=== PATIENT | female | born 1955 | race Caucasian/White ===

== ENCOUNTER 2021-10-25 07:30 | Day surgery (SDC) | payer MEDICARE ==
[~2021-10-25] VITALS: Ht 157.5 cm; Wt 59.0 kg
[~2021-10-25 07:30] MED LIST: ALENDRONATE SOD70 MG PO; BACLOFEN10 MG PO; BENAZEPRIL40 M1 PO; CELECOXIB200 MG PO; FENOFIBRATE134 M1 PO; LIPITOR40 M1 PO; NORVASC5 M1 PO; OMEPRAZOLE20 MG PO; TRAZODONE50 MG PO; TYLENOL325 M2 PO
[2021-10-25 09:59] VITALS: BP 146/67
== END 2021-10-25 10:15 | disposition home or self-care (01) ==
LOC: ENDO 07:30 → ORM 09:30 → ENDO 10:15
PROVIDERS: ATTEND Surgery
PROC: 0DJD8ZZ Inspection of Lower Intestinal Tract, Via Natural or Artificial Opening Endoscopic (ICD-10-PCS; principal; 2021-10-25)
DX: Z12.11 Encounter for screening for malignant neoplasm of colon (principal); D17.5 Benign lipomatous neoplasm of intra-abdominal organs; K57.30 Diverticulosis of large intestine without perforation or abscess without bleeding; K64.8 Other hemorrhoids; Q43.9 Congenital malformation of intestine, unspecified; I10 Essential (primary) hypertension; Z86.010 Personal history of colon polyps

== ENCOUNTER 2024-04-26 13:39 | Emergency (ER) | payer MEDICARE ==
[2024-04-26] VITALS (9 sets, daily range): BP systolic 92–185; BP diastolic 65–81
[~2024-04-26] VITALS: Ht 157.5 cm; Wt 63.0 kg
[2024-04-26 13:57] LABS: BASO% 0.3 % (0-3); EOS% 1.3 % (0-8); HEMATOCRIT 28.5 % (37.0-47.0); HEMOGLOBIN 9.5 g/dl (12.0-16.0); IMMATURE GRANULOCYTES 0.6 % (0.0-5.0); MEAN CORPUSCULAR HGB CONC 33.3 g/dL CAL (32.0-36.0); MONO% 7.5 % (2-13); NEUT# 4.23 thou/uL (2.00-7.15); NEUT% 66.3 % (42-76); RED BLOOD COUNT 2.88 mill/uL (4.20-5.60); RED CELL DISTRI WIDTH 13.5 % (11.5-15.5)
[2024-04-26] MEDS ORDERED: LIDOCAINE VISCOUS 2% 15 ML UDC PO ONE (14:00)
[2024-04-26] MEDS ORDERED: ALUM & MAG HYDROX-SIMETHICONE 30 ML PO ONE (14:00)
[2024-04-26] MEDS ORDERED: FAMOTIDINE 10MG/ML 2ML SDV IV ONE (14:00)
[2024-04-26 14:16] LABS: ALBUMIN 4.4 g/dL (3.2-5.0); ALKALINE PHOSPHATASE 51 u/l (38-126); BILIRUBIN, TOTAL 0.4 mg/dL (0.02-1.3); BUN 24 mg/dL (8-23); BUN/CREATININE RATIO 13 (12-20 (CALC)); CARBON DIOXIDE 19 mmol/l (22-30); CHLORIDE 98 mmol/l (95-108); CREATININE 1.8 mg/dL (0.5-1.0); ESTIMATED GFR 30 ML/MIN (>=90 (CALC)); SGOT/AST 38 u/l (9-36); SODIUM 124 mmol/l (137-146); TOTAL PROTEIN 7.4 g/dL (6.3-8.2)
[2024-04-26 14:17] LABS: ANION GAP 11 (6-22 (CALC)); POTASSIUM 4.3 mmol/l (3.5-5.1)
[2024-04-26] MEDS ORDERED: SODIUM CHLORIDE 0.9% 1,000 ML IV ONE (14:30)
[2024-04-26] MEDS ORDERED: ESOMEPRAZOLE MA40 MG PO (16:31)
== END 2024-04-26 17:09 | disposition home or self-care (01) ==
LOC: ED 13:39
PROVIDERS: Family Medicine
DX: K29.70 Gastritis, unspecified, without bleeding (principal); I10 Essential (primary) hypertension; K21.9 Gastro-esophageal reflux disease without esophagitis